=== PATIENT | male | born 1995 | race Caucasian/White ===

== ENCOUNTER 2019-01-09 10:20 | Emergency (ER) | payer BC, SELFPAY ==
[2019-01-09 10:21] VITALS: BP 119/66; PULSE 57; RESP 17; TEMP 36.4; O2SAT 99; BMI 28.7
--- NOTE | 2019-01-09 11:40 | CM.ED ---
SOCIAL WORK ASSESSMENT INFORMANT: DR. COSTA REASON FOR REFERRAL: MENTAL HEALTH- PATIENT PRESENTS WITH DEPRESSION AND ANXIETY. DENIES HOMICIDAL AND SUICIDAL IDEATION TO PHYSICIAN. LIVING SITUATION: PATIENT REPORTS LIVES HOME WITH PARENTS. PARENTS PRESENT FOR ASSESSMENT. EDUCATION/EMPLOYMENT: PATIENT REPORTS HAS [employer]GREE IN EDUCATION AND IS WORKING [employer]. PRIMARY CARE: PATIENT STATES HAS A NEW PATIENT APPOINTMENT SCHEDULED FOR TUESDAY AT 2 PM. MENTAL HEALTH HISTORY: PATIENT STATES ONSET OF DEPRESSION AND ANXIETY STARTED 3 MONTHS AGO. PATIENT DOES NOT KNOW WHAT BROUGHT ON THESE FEELINGS. PATIENT STATES I JUST HAVEN'T BEEN FEELING MYSELF. PATIENT DENIES ANY THOUGHTS OF SUICIDAL OR HOMICIDAL IDEATION. MOTHER PRESENT IN ROOM AND STATES MENTAL HEALTH RUNS ON MY SIDE OF THE FAMILY. SUPPORT AND EDUCATION PROVIDED. PATIENT OPEN TO SETTING UP COUNSELING SERVICES AND REQUESTS THIS WORKER SCHEDULE FIRST APPOINTMENT. DISCUSSED OPTIONS AND THIS WORKER TO SET UP APPOINTMENT WITH THE COUNSELING CENTER. ASSESSMENT: MET WITH PATIENT AND PARENTS IN ROOM. INTRODUCED ROLE AND REASON FOR REFERRAL. PATIENT GAVE PERMISSION FOR THIS WORKER TO SPEAK OPENLY WITH PARENTS PRESENT. PATIENT STATES HAS BEEN FEELING DEPRESSED AND ANXIOUS FOR ABOUT 3 MONTHS AND STATES FEELINGS HAVE INCREASED OVER THE LAST 2 WEEKS. PATIENT REPORTS DOES NOT KNOW WHAT BRINGS ON THE FEELINGS. PATIENT STATES HE WAKES UP FEELING DOWN. DISCUSSED OPTIONS AND PATIENT REPORTS DOES HAVE NEW PATIENT APPOINTMENT WITH PRIMARY CARE PHYSICIAN SCHEDULED FOR TUESDAY AT 2P. PATIENT STATES WILL DISCUSS FEELINGS WITH PHYSICIAN. PATIENT OPEN TO COUNSELING SERVICES AND AGENCIES REVIEWED. PATIENT REQUESTING THIS WORKER SCHEDULE FIRST APPOINTMENT. CALL TO THE COUNSELING CENTER. INTAKE APPOINTMENT SCHEDULED FOR 01/12/19 AT 1:30P WITH MANUELA CAI AT THE [facility]. PATIENT PROVIDED WITH APPOINTMENT TIME, DATE AND LOCATION. PATIENT DENIES ANY FURTHER NEEDS AT THIS TIME. UPDATED DR. COSTA AND NURSEDONOVAN. PLAN: HOME WITH FAMILY. INTAKE APPOINTMENT SCHEDULED FOR 01/12/19 WITH THE COUNSELING C[facility]- [place] [facility]. Cali MCDANIEL MSW, [employer].
--- NOTE | 2019-01-09 12:04 | ED.VISSUMM ---
- ER Visit Summary Date of Service: 01/09/19 Chief Complaint: Anxiety and depression] History of Present Illness: The patient is a 23 M [presents to the emergency department with complaint of anxiety and depression for the last 2 months. Patient states that there is really nothing he can think of in his life that is making him stressed. Patient has episodes of anxiety where he feels shaky and short of breath. After his anxiety passes he feels depressed. He is not having any thoughts of self-harm. Is not having homicidal ideation. He denies any hallucinations. Patient has not seen anybody for this. Patient does have a girlfriend and he has no kids. Patient has been going to work and he has been able to do his work which actually makes him feel better when he is at work. Symptoms typically worse at night or when he is alone. Patient at times having a hard time sleeping. Patient has had decreased appetite.] Physical Examination: [HEENT-PERRLA, EOMI. Cranial nerves II through XII grossly intact. TMs clear. Mucous membranes moist. No adenopathy. Cardiovascular-regular rate and rhythm without murmur or ectopy Lungs-clear to auscultation, chest wall stable without crepitus or subcu emphysema Abdomen-normoactive bowel sounds, soft, nontender, no rebound or rigidity, no peritoneal signs. Extremities-intact ?4, normal range of motion, normal pulses, atraumatic] Test Results: [None indicated] Emergency Department Course and Treatment: [Case was discussed with outreach and education social worker who saw patient in the ER and made follow-up arrangements for them to see counseling center in 3 days. Patient also will see his primary care physician later this week.] Treatment Plan: [We will up with counseling center and primary care physician. At this point patient does not meet admission criteria as he is not a threat to himself. I will write him a prescription for Ativan as needed for anxiety reactions.] Disposition: [Discharged home in stable condition] Impression: [Anxiety Depression] This note was generated with [employer] dictation software. It may contain incorrect words, spelling, and punctuation that were not noted in review of the chart prior to signing ED Disposition - Plan for ED Patient: Referrals: MELINDA BUSTILLOS [Other]
--- NOTE | 2019-01-09 12:07 | ED.DEP ---
ED Disposition - Plan for ED Patient: Instructions: Depression, Panic Attack Prescriptions: Lorazepam [Ativan] 1 mg PO TID PRN #10 tab PRN Reason: Anxiety Prescription Printed Referrals: MELINDA BUSTILLOS [Other] - 3-5 Days
[2019-01-09] MEDS: LORazepam 1 MG Tablet PO (12:15)
--- NOTE | 2019-01-09 12:21 | ED.RN ---
DISCHARGE INSTRUCTIONS GIVEN TO AND REVIEWED WITH PATIENT, PATIENT DENIES QUESTIONS OR CONCERNS AND VOICES UNDERSTANDING OF DISCHARGE INSTRUCTIONS. PT AMBULATES OUT OF ROOM WITHOUT DIFFICULTY.
== END 2019-01-09 12:21 | disposition home or self-care (01) ==
LOC: ED 11:30
PROVIDERS: Emergency Provider Emergency Medicine
DX: F41.9 Anxiety disorder, unspecified (principal); F32.9 Major depressive disorder, single episode, unspecified
CPT/HCPCS: 99283